=== PATIENT | male | born 1980 | race Caucasian/White ===

== ENCOUNTER → 2021-05-15 09:29 | Outpatient (CLI) | payer BC, SELFPAY ==
[2021-05-15 17:58] LABS: SARS-CoV-2 RNA PCR Positive
== END ==
PROVIDERS: PCP Family Medicine; Visit Provider Physician Assistant
DX: U07.1 COVID-19 (principal)
CPT/HCPCS: C9803; U0003; U0005

== ENCOUNTER 2021-07-02 09:16 | Outpatient (CLI) | payer BC, SELFPAY ==
--- NOTE | 2021-07-02 11:00 | NEURO_ITS ---
Impression: # Complains of pain and numbness left hand particularly 4th and 5th fingers. # No Carpal Tunnel Syndrome or ulnar neuropathy. # Normal nerve conduction study. # Normal needle/EMG exam. # Clinical correlation recommended. Nerve Conduction Studies Anti Sensory Summary Table Stim Site NR Peak (ms) P-T Amp (?V) Site1 Site2 Delta-P (ms) Dist (cm) Edward (m/s) Left Median Anti Sensory (2-3nd Digit) Wrist 3.1 44.9 Wrist 2-3nd Digit 3.1 14.0 45 Wrist 3.1 67.3 Wrist 2-3nd Digit 3.1 14.0 45 Right Median Anti Sensory (2-3nd Digit) Wrist 3.1 51.9 Wrist 2-3nd Digit 3.1 14.0 45 Wrist 3.2 22.6 Wrist 2-3nd Digit 3.1 14.0 45 Left Radial Anti Sensory (Base 1st Digit) Wrist 2.4 29.0 Wrist Base 1st Digit 2.4 0.0 Right Radial Anti Sensory (Base 1st Digit) Wrist 2.6 13.4 Wrist Base 1st Digit 2.6 0.0 Left Ulnar Anti Sensory (5th Digit) Wrist 2.8 19.2 Wrist 5th Digit 2.8 14.0 50 Right Ulnar Anti Sensory (5th Digit) Wrist 2.6 7.2 Wrist 5th Digit 2.6 14.0 54 Motor Summary Table Stim Site NR Onset (ms) O-P Amp (mV) Site1 Site2 Delta-0 (ms) Dist (cm) Edward (m/s) Left Median Motor (Abd Poll Brev) Wrist 3.0 5.6 Elbow Wrist 4.8 29.0 60 Elbow 7.8 4.3 Right Median Motor (Abd Poll Brev) Wrist 3.0 7.5 Elbow Wrist 4.7 28.0 60 Elbow 7.7 6.3 Left Ulnar Motor (Abd Dig Minimi) Wrist 2.5 7.7 A Elbow Wrist 5.0 30.0 60 A Elbow 7.5 6.8 Right Ulnar Motor (Abd Dig Minimi) Wrist 2.3 5.1 A Elbow Wrist 4.9 29.0 59 A Elbow 7.2 5.3 F Wave Studies NR F-Lat (ms) L-R F-Lat (ms) Left Median (Mrkrs) (Abd Poll Brev) 27.54 0.07 Right Median (Mrkrs) (Abd Poll Brev) 27.46 0.07 Left Ulnar (Mrkrs) (Abd Dig Min) 28.54 0.57 Right Ulnar (Mrkrs) (Abd Dig Min) 27.97 0.57 EMG Side Muscle Nerve Root Ins Act Fibs Amp Dur Recrt Comment Right 1stDorInt Ulnar C8-T1 Nml Nml Nml Nml Nml Right Ext Indicis Radial (Post Int) C7-8 Nml Nml Nml Nml Nml Right Ext Digitorum Radial (Post Int) C7-8 Nml Nml Nml Nml Nml Right BrachioRad Radial C5-6 Nml Nml Nml Nml Nml Right PronatorTeres Median C6-7 Nml Nml Nml Nml Nml Right Abd Poll Brev Median C8-T1 Nml Nml Nml Nml Nml Left 1stDorInt Ulnar C8-T1 Nml Nml Nml Nml Nml Left Ext Indicis Radial (Post Int) C7-8 Nml Nml Nml Nml Nml Left Ext Digitorum Radial (Post Int) C7-8 Nml Nml Nml Nml Nml Left BrachioRad Radial C5-6 Nml Nml Nml Nml Nml Left PronatorTeres Median C6-7 Nml Nml Nml Nml Nml Left Abd Poll Brev Median C8-T1 Nml Nml Nml Nml Nml Right ABD Dig Min Ulnar C8-T1 Nml Nml Nml Nml Nml Right Abd Poll Long Radial (Post Int) C7-8 Nml Nml Nml Nml Nml Left ABD Dig Min Ulnar C8-T1 Nml Nml Nml Nml Nml Left Abd Poll Long Radial (Post Int) C7-8 Nml Nml Nml Nml Nml MTDD
== END 2021-07-02 09:17 | disposition home or self-care (01) ==
LOC: ANHNEURO 09:17
PROVIDERS: PCP Family Medicine; Visit Provider Family Medicine
DX: G56.00 Carpal tunnel syndrome, unspecified upper limb (principal)
CPT/HCPCS: 95886; 95911

== ENCOUNTER → 2021-07-13 00:28 | Outpatient (CLI) | payer BC, SELFPAY ==
[2021-07-13 14:00] LABS: Influenza A QL RT-PCR Negative (Negative); Influenza B QL RT-PCR Negative (Negative); SARS-CoV-2 RNA PCR Negative
== END ==
PROVIDERS: PCP Family Medicine; Visit Provider Physician Assistant
DX: R68.89 Other general symptoms and signs (principal); Z20.822 Contact with and (suspected) exposure to COVID-19
CPT/HCPCS: 87502; C9803; U0003; U0005

== ENCOUNTER 2023-09-17 09:36 | Day surgery (SDC) | payer OTHER, BC, SELFPAY ==
[2023-08-27 10:28] VITALS: BMI 25.8
[2023-08-31 08:48] VITALS: BMI 24.3
[2023-09-17 10:18] VITALS: BP 121/85; PULSE 74; RESP 14; TEMP 37; O2SAT 100
[2023-09-17] MEDS: LACTATED RINGERS 1,000 ML 150 ML IV CONT (10:30)
--- NOTE | 2023-09-17 10:40 | PM.HPGS ---
History of Present Illness History of Present Illness Consent: Risks, benefits, and alternatives have been discussed and questions answered. Patient agrees to proceed with procedure. Chief complaint: Neoplasm Screening of Colon and Rectum Narrative: Esteban Bobo is a 42 year old male presents for screening colonoscopy. Patient's current weight appetite and bowel is are normal. Patient denies abdominal pain. He has had no bleeding. Family history is noncontributory. Review of Systems Review of Systems: Review of systems is noncontributory. PMFSH Past Medical History Medical History Alcoholism Hearing loss History of MRSA infection Pain in right upper arm Right knee DJD Right knee pain Surgical History Surgical History Orbital fracture s/p ORIF S/P ACL repair right Family History Family History Mother Hypertension Social History Social History Smoking packs per day: 1 Smoking cigarettes per day: 20.0 Years smoked: 15 Smoking pack-years: 15.00 Smoking status: Current every day smoker Tobacco type: e-cigarettes/vaping Smokeless tobacco user: chewing tobacco Smoking end date: 06/15/09 Alcohol intake: former Substance use: current Substance use type: marijuana Last use: weekly Living arrangements: with family Occupation/Education: occupation Gender identity (if verbalized by the patient): Male Sexual Orientation (if Verbalized by the Patient): Straight or Heterosexual Spiritual care concerns: No Meds Home Medications and Allergies Home Medications Medication Instructions Recorded Confirmed Type lisinopril 10 mg tablet 10 mg PO DAILY #90 tabs 04/10/23 09/17/23 Rx aripiprazole 10 mg tablet 10 mg PO DAILY 08/21/23 09/17/23 History atomoxetine 60 mg capsule 60 mg PO DAILY 08/21/23 09/17/23 History buspirone 5 mg tablet 5 mg PO DAILY 08/21/23 09/17/23 History trazodone 100 mg tablet 150 mg PO QHS 08/21/23 09/17/23 History acetaminophen 650 mg tablet 650 mg PO Q6H PRN Pain 08/31/23 09/17/23 History Allergies Allergy/AdvReac Type Severity Reaction Status Date / Time No Known Allergies Allergy Verified 09/17/23 10:14 Vital Signs Vital Signs - 24 hr 09/17/23 10:18 Temperature 98.6 F Pulse Rate 74 Respiratory Rate 14 Blood Pressure 121/85 Pulse Oximetry 100 Oxygen Delivery Room Air Exam Narrative: Physical exam reveals patient to be alert signs stable. HEENT exam is unremarkable. Patient is anicteric. Lungs are clear to auscultation and to percussion. Heart is without murmur or extra sounds. Abdomen bowel sounds are present soft nontender with no organomegaly. Digital external rectal exam is normal. Assessment and Plan Assessment and plan (1) Encounter for screening colonoscopy: Code(s): Z12.11 - Encounter for screening for malignant neoplasm of colon Status: Acute Assessment and Plan: Patient presents for screening colonoscopy. He appears to be at average risk for colon polyps.
--- NOTE | 2023-09-17 10:43 | WPDANESEPPF ---
Anes - Initial Pre Proc Eval Procedure: Operation Date: 09/17/23 11:30 Proposed Procedures p Screening Colonoscopy - Jama Suresh MD Date/Time: 09/17/23 10:43 Surgeon: Jama Suresh MD Pre Op Diagnosis: Neoplasm Screening of Colon and Rectum Patient Data Age: 42 Gender: M Height: 1.7 m Weight: 70.35 kg Last Vital Signs Temp 37.0 C 09/17/23 10:18 Pulse 74 09/17/23 10:18 Resp 14 09/17/23 10:18 BP 121/85 09/17/23 10:18 Pulse Ox 100 09/17/23 10:18 O2 Del Method Room Air 09/17/23 10:18 Allergies Allergy/AdvReac Type Severity Reaction Status Date / Time No Known Allergies Allergy Verified 09/17/23 10:14 Home Medications Medication Instructions Recorded Confirmed Type lisinopril 10 mg tablet 10 mg PO DAILY #90 tabs 04/10/23 09/17/23 Rx aripiprazole 10 mg tablet 10 mg PO DAILY 08/21/23 09/17/23 History atomoxetine 60 mg capsule 60 mg PO DAILY 08/21/23 09/17/23 History buspirone 5 mg tablet 5 mg PO DAILY 08/21/23 09/17/23 History trazodone 100 mg tablet 150 mg PO QHS 08/21/23 09/17/23 History acetaminophen 650 mg tablet 650 mg PO Q6H PRN Pain 08/31/23 09/17/23 History Patient hx anesthesia problems: none Family hx anesthesia problems: none Results Review: All pre-operative results and documents have been reviewed as part of the pre-operative evaluation. [facility] Past Medical History Medical History Alcoholism Hearing loss History of MRSA infection Pain in right upper arm Right knee DJD Right knee pain Surgical History Surgical History Orbital fracture s/p ORIF S/P ACL repair right Family History Family History Mother Hypertension Social History Social History Smoking packs per day: 1 Smoking cigarettes per day: 20.0 Years smoked: 15 Smoking pack-years: 15.00 Smoking status: Current every day smoker Tobacco type: e-cigarettes/vaping Smokeless tobacco user: chewing tobacco Smoking end date: 06/15/09 Alcohol intake: former Substance use: current Substance use type: marijuana Last use: weekly Living arrangements: with family Occupation/Education: occupation Gender identity (if verbalized by the patient): Male Sexual Orientation (if Verbalized by the Patient): Straight or Heterosexual Spiritual care concerns: No Anes - Eval Final PreProcedure Day of Procedure 09/17/23 10:43 Patient weight: normal Heart: regular rate and rhythm Lungs: decreased breath sounds Airway: Mallampati scale class II Neurological: alert and oriented Last oral intake: >/= 8 hours ASA classification: III Emergent: no Anesthetic plan: proceed Anesthesia type and monitoring: general GIVS and standard monitoring Results Review: All pre-operative results and documents have been reviewed as part of the pre-operative evaluation. Informed Consent: The patient's anesthetic plan and its attendant risks and benefits were discussed with the patient/family/POA. Questions were solicited and answers provided to the satisfaction of the patient/family/POA.
[2023-09-17] MEDS: SIMETHICONE ORAL SUSPENSION 20 MG/0.3 ML 30 ML BOTTLE 0.6 ML IRRIGATION (10:56)
[2023-09-17 11:04] VITALS: BP 91/73; PULSE 78; RESP 16; O2SAT 97
[2023-09-17 11:14] VITALS: BP 106/75; PULSE 70; RESP 20; O2SAT 100
[2023-09-17 11:24] VITALS: BP 119/89; PULSE 71; RESP 20; O2SAT 100
--- NOTE | 2023-09-17 11:36 | WPDANESPN ---
Anes - Prog Note Post-Op Date/Time: 09/17/23 11:36 Cardiovascular status: normal Respiratory status: normal Airway patency: baseline Mental status: baseline Post-Op hydration status: normal Vital Signs: Last Vital Signs Temp 37.0 C 09/17/23 10:18 Pulse 74 09/17/23 10:18 Resp 14 09/17/23 10:18 BP 121/85 09/17/23 10:18 Pulse Ox 100 09/17/23 10:18 O2 Del Method Room Air 09/17/23 10:18 Pain Score (VAS): 0 I/O: Intake & Output 09/16/23 09/17/23 09/17/23 23:59 07:59 15:59 Intake Total 0 Balance 0 Patient Feedback: Patient satisfied with anesthetic care.
== END 2023-09-17 11:47 | disposition home or self-care (01) ==
PROVIDERS: PCP Family Medicine; Visit Provider Internal Medicine Gastroenterology
PROC: 0DJD8ZZ Inspection of Lower Intestinal Tract, Via Natural or Artificial Opening Endoscopic (ICD-10-PCS; CPT 45378; principal; 2023-09-17 11:30)
DX: Z12.11 Encounter for screening for malignant neoplasm of colon (principal)
CPT/HCPCS: 45378

== ENCOUNTER 2023-09-25 09:48 | Outpatient (CLI) | payer OTHER, BC, SELFPAY | END 2023-09-25 09:49 | disposition home or self-care (01) | LOC: ANHAUDIO 09:49 | PROVIDERS: PCP Family Medicine; Visit Provider Physician Assistant | DX: H90.3 Sensorineural hearing loss, bilateral (principal) | CPT/HCPCS: 92557; 92567 ==